=== PATIENT | female | born 1955 | race Caucasian/White ===

== ENCOUNTER 2020-11-01 08:15 | Day surgery (SDC) | payer MEDICARE, BC ==
[2020-11-01] VITALS (12 sets, daily range): BP systolic 107–162; BP diastolic 46–90
[~2020-11-01] VITALS: Ht 162.6 cm; Wt 82.5 kg
[2020-11-01] MEDS ORDERED: LORazepam 0.5 MG tablet PO PRN (08:45)
[2020-11-01] MEDS ORDERED: nitroGLYCERIN 0.4mg SUBLingual tab SL PRN (08:45)
[2020-11-01] MEDS ORDERED: normal saline 1,000 ML IV SCH (08:45)
[2020-11-01] MEDS ORDERED: diphenhydrAMINE 25mg capsule PO PRN (08:45)
[2020-11-01] MEDS ORDERED: CALC-103 (08:50)
[2020-11-01] MEDS ORDERED: ATOR20TA PO (08:50)
[2020-11-01] MEDS ORDERED: TRAZ-256 PO (08:50)
[2020-11-01] MEDS ORDERED: IBAN150T21 PO (08:50)
[2020-11-01] MEDS ORDERED: OMEP40CA13 PO (08:50)
[2020-11-01] MEDS ORDERED: FLUO-167 PO (08:50)
[2020-11-01] MEDS ORDERED: RIZA10TA27 PO (08:50)
[2020-11-01] MEDS ORDERED: OXYB5TAB16 PO (08:50)
[2020-11-01] MEDS ORDERED: FLUT100D2 INH (08:50)
[2020-11-01] MEDS ORDERED: ASPI-1265 PO (08:50)
[2020-11-01] MEDS ORDERED: MULT-1085 PO (08:50)
[2020-11-01] MEDS ORDERED: MAGN250T11 PO (08:50)
[2020-11-01 09:24] LABS: BASOPHILS % (AUTO) 0.6 % (0-1); EOSINOPHILS # (AUTO) 0.2 X10'3 (0-0.9); EOSINOPHILS % (AUTO) 4.4 % (0-6); HEMATOCRIT 43.4 % (35.0-45.0); HEMOGLOBIN 14.5 g/dl (12.0-16.0); LYMPHOCYTES # (AUTO) 1.8 X10'3 (1.1-4.8); LYMPHOCYTES % (AUTO) 36.7 % (21-51); MEAN CORPUSCULAR HEMOGLOBIN 32.5 PG (27.0-31.0); MEAN CORPUSCULAR HGB CONC 33.3 g/dL (33.0-36.5); MEAN CORPUSCULAR VOLUME 97.5 FL (78-98); MEAN PLATELET VOLUME 8.9 FL (7.4-10.4); MONOCYTES # (AUTO) 0.5 X10'3 (0-0.9); MONOCYTES % (AUTO) 10.4 % (2-12); NEUTROPHILS # (AUTO) 2.3 X10'3 (1.8-7.7); NEUTROPHILS % (AUTO) 47.9 % (42-75); PLATELET COUNT 176 X10'3 (140-440); RED BLOOD COUNT 4.46 X10'6 (4.20-5.60); RED CELL DISTRIBUTION WIDTH 12.9 % (11.5-14.5); WHITE BLOOD COUNT 4.9 X10'3 (4.5-11.0)
[2020-11-01 09:33] LABS: ALBUMIN 3.6 G/DL (3.4-5.0); ANION GAP 6 (8-16); BLOOD UREA NITROGEN 18 MG/DL (7-18); BUN/CREATININE RATIO 24.3 (6.6-38.0); CALCIUM 9.2 MG/DL (8.5-10.1); CHLORIDE 107 MMOL/L (99-107); CREATININE 0.74 MG/DL (0.40-0.90); GLUCOSE 106 MG/DL (70-104); POTASSIUM 4.1 MMOL/L (3.5-5.1); SODIUM 140 MMOL/L (135-145); TOTAL CARBON DIOXIDE 27.1 MMOL/L (24-32); eGFR 78 ML/MIN
[2020-11-01 09:35] LABS: PARTIAL THROMBOPLASTIN TIME 28 SECONDS (22-32)
[2020-11-01] MEDS ORDERED: LIDOcaine 1% (10mg/ml)w/preservative injection 20ml MDV ONE (10:25)
[2020-11-01] MEDS ORDERED: iohexol 350MG/ML 100ml bottle IV ONE (10:25)
[2020-11-01] MEDS ORDERED: iohexol 350 MG/ML 50ML vial IV ONE (10:25)
[2020-11-01] MEDS ORDERED: fentaNYL/PF 50MCG/1 ML 2ML syringe ONE (10:25)
[2020-11-01] MEDS ORDERED: midazolam 2 mg/2 ml injection ONE ×2 (10:25→10:58)
[2020-11-01 11:23] LABS: ISTAT HGB ART 12.6 g/dl (12.0-16.0); ISTAT Hct ART 37 %PCV (35-48); ISTAT O2 SATURATION ARTERIAL 75 % (95-98); ISTAT SOURCE ART
== END 2020-11-01 18:00 | disposition home or self-care (01) ==
LOC: SSTAY O 08:15
PROVIDERS: ATTEND Internal Medicine Cardiovascular Disease
DX: R94.39 Abnormal result of other cardiovascular function study (principal); I25.10 Atherosclerotic heart disease of native coronary artery without angina pectoris; E78.5 Hyperlipidemia, unspecified; J44.9 Chronic obstructive pulmonary disease, unspecified; I50.9 Heart failure, unspecified; Z87.891 Personal history of nicotine dependence
CPT/HCPCS: 36415; 71046; 80048; 82803; 85014; 85025; 85610; 85730; 93005; 93460; 99152; 99153; C1760; C1769; J1644; J2001; J2250; J3010; J7030; Q0163; Q9967; A4620; A6258; C1751

== ENCOUNTER 2020-11-22 08:48 | Outpatient (CLI) | payer MEDICARE, BC ==
[~2020-11-22 08:48] MED LIST: ASPI-1265 PO; ATOR20TA PO; CALC-103; FLUO-167 PO; FLUT100D2 INH; IBAN150T21 PO; MAGN250T11 PO; MULT-1085 PO; OMEP40CA13 PO; OXYB5TAB16 PO; RIZA10TA27 PO; TRAZ-256 PO
[2020-11-22 09:11] LABS: ABG BASE EXCESS -0.4 mmol/L (-2.0-2.0); ABG HCO3 23.4 mmol/L (22.0-26.0); ABG OXYGEN SATURATION 96.9 % (94-97); ABG PCO2 (T) 36.1 mmHg (32.0-45.0); ABG PO2 (T) 90.9 mmHg (75.0-100.0); ALLEN'S TEST POSITIVE; FMetHb 0.1 % (0.0-1.5); FO2Hb 95.8 % (94-97); TOTAL HEMOGLOBIN 15.5 G/dl (12.0-16.0)
== END 2020-11-22 23:59 | disposition home or self-care (01) ==
LOC: RT 08:48 → EDUNIT# 09:00 → RT 23:59
PROVIDERS: ATTEND Internal Medicine Cardiovascular Disease
DX: J45.998 Other asthma (principal); J44.9 Chronic obstructive pulmonary disease, unspecified
CPT/HCPCS: 36600; 82803; 85018; 94010; 94727; 94729

== ENCOUNTER 2022-01-08 08:52 | Day surgery (SDC) | payer MEDICARE, BC ==
[2022-01-01 12:53] LABS: BASOPHILS % (AUTO) 0.7 % (0-1); EOSINOPHILS # (AUTO) 0.2 X10'3 (0-0.9); EOSINOPHILS % (AUTO) 2.6 % (0-6); LYMPHOCYTES # (AUTO) 2.1 X10'3 (1.1-4.8); LYMPHOCYTES % (AUTO) 33.6 % (21-51); MEAN CORPUSCULAR HEMOGLOBIN 32.3 PG (27.0-31.0); MEAN CORPUSCULAR HGB CONC 33.9 g/dL (33.0-36.5); MEAN CORPUSCULAR VOLUME 95.3 FL (78-98); MEAN PLATELET VOLUME 9.7 FL (7.4-10.4); MONOCYTES # (AUTO) 0.5 X10'3 (0-0.9); MONOCYTES % (AUTO) 8.2 % (2-12); NEUTROPHILS # (AUTO) 3.4 X10'3 (1.8-7.7); NEUTROPHILS % (AUTO) 54.9 % (42-75); PRE OP HEMATOCRIT 44.4 % (35.0-45.0); PRE OP HEMOGLOBIN 15.1 g/dL (12.0-16.0); PRE OP PLATELET COUNT 186 X10'3 (140-440); RED BLOOD COUNT 4.66 X10'6 (4.20-5.60); RED CELL DISTRIBUTION WIDTH 13.2 % (11.5-14.5)
[2022-01-01 13:04] LABS: PRE OP INR 1.1 INR; PRE OP PROTIME 10.9 SECONDS (9.0-12.0)
[2022-01-01 13:08] LABS: ALBUMIN 3.7 G/DL (3.4-5.0); ALKALINE PHOSPHATASE 84 IU/L (46-116); BLOOD UREA NITROGEN 19 MG/DL (7-18); BUN/CREATININE RATIO 26.8 (6.6-38.0); CALCIUM 9.5 MG/DL (8.5-10.1); CHLORIDE 104 MMOL/L (99-107); CREATININE 0.71 MG/DL (0.40-0.90); PRE OP ALT 36 U/L (30-65); PRE OP ANION GAP 10 (8-16); PRE OP AST 24 U/L (10-37); PRE OP BILIRUB, TOTAL 0.7 MG/DL (0.0-1.0); PRE OP GLUCOSE 99 MG/DL (70-104); PRE OP POTASSIUM 3.8 MMOL/L (3.4-5.1); PRE OP SODIUM 140 MMOL/L (135-145); TOTAL CARBON DIOXIDE 25.9 MMOL/L (24-32); TOTAL PROTEIN 7.5 G/DL (6.4-8.2); eGFR 82 ML/MIN
[2022-01-08] VITALS (12 sets, daily range): BP systolic 115–176; BP diastolic 71–96
[~2022-01-08] VITALS: Ht 162.6 cm; Wt 80.9 kg
[~2022-01-08 08:52] MED LIST changes: +ASCO100T12 PO; +CHOL400T57 PO; +CYAN250010 PO; +CYCL-392 PO; +DOCU-148 PO; +FOLI0.4T14 PO; -IBAN150T21 PO; +LIDOcaine 1% W/epiNEPHrine 1:100,000 20ml vial ONE; +MAGN400C PO; +MIRA50TA PO; -OMEP40CA13 PO; +OMEP40CA21 PO; +PYRI100T10 PO; +RIZA10TA98 PO; +ROMO105S SQ; +UBID50TA3 PO; +VITA400T10 PO; +albuterol 2.5 MG/3 ML nebule NEB ONE; +cocaine 4% topical solution 4ml bottle ONE; +diazepam 5mg tablet PO ONE; +famotidine 20mg tablet PO ONE; +mupirocin 2% ointment 22GM ONE; +oxymetazoline 15 ML nasal spray NS ONE; +ringers solution, lacted 1,000 ML IV SCH
[2022-01-08] MEDS: oxymetazoline 15 ML nasal spray NS SCH ×2 (10:21→14:49)
[2022-01-08] MEDS ORDERED: sevoflurane 250ml liquid IH ONE (12:43)
[2022-01-08] MEDS ORDERED: midazolam 1 mg/ML 2ml injection ONE (12:46)
[2022-01-08] MEDS ORDERED: fentaNYL /PF 50mcg/ml 5ml ampule ONE (12:46)
[2022-01-08] MEDS ORDERED: dexamethasone sod phosphate 4mg/ml inj. ONE (13:25)
[2022-01-08] MEDS ORDERED: LIDOcaine 2% (20mg/ml) 5ml vial ONE (13:25)
[2022-01-08] MEDS ORDERED: glycopyrrolate 0.2mg/ml inj ONE (13:25)
[2022-01-08] MEDS ORDERED: ondansetron/PF 4mg/2ml inj ONE (13:25)
[2022-01-08] MEDS ORDERED: ePHEDrine 50MG/ML INJ. ONE (13:25)
[2022-01-08] MEDS ORDERED: propofol inj 20 ML IV ONE (13:25)
--- NOTE | 2022-01-08 13:47 | NUR ---
Received from OR via [facility] , accompanied by Anesthesiologist DR MCKINLEY and report given by Anesthesiolgist. PT PRESENTS WITH PIV 20G RIGHT FOREARM, NASAL PACKING CDI, VSS. Addendum: 01/08/22 at 1404 by Marina Aiken RN, RN Amended: Links added.
[2022-01-08] MEDS ORDERED: morphine 4 MG/ML inj SYRINge IV PRN (13:55)
[2022-01-08] MEDS ORDERED: labetalol 5mg/ml 20ml inj. IV PRN (13:55)
[2022-01-08] MEDS ORDERED: morphine 2 MG/ML inj. syringe IV PRN (13:55)
[2022-01-08] MEDS ORDERED: ondansetron/PF 4mg/2ml inj IV PRN (13:55)
[2022-01-08] MEDS ORDERED: meperidine/PF 25mg/ml syringe IV PRN ×2 (13:55)
[2022-01-08] MEDS ORDERED: ringers solution, lacted 1,000 ML IV SCH (13:55)
[2022-01-08] MEDS ORDERED: salt irrigation nasal spray 45 ML SPRAY NS PRN (14:05)
--- NOTE | 2022-01-08 14:10 | NUR ---
HYDRALAZINE OUT OF STOCK, PHARMACY CALLED AND NOTIFIED. WILL GIVE PT MEDICATION SOON IT GETS TO PACU. Addendum: 01/08/22 at 1440 by Marina Aiken RN, RN Amended: Links added.
[2022-01-08] MEDS ORDERED: mupirocin 2% ointment 22GM TP STA (14:19)
[2022-01-08] MEDS: hydrALAZINE 20mg/ml inj. IV PRN ×2 (14:36→14:54)
--- NOTE | 2022-01-08 15:27 | NUR ---
I HAVE REVIEWED D/C INSTRUCTIONS WITH PATIENT AND THEY HAVE VERBALIZED UNDERSTANDING OF INSTRUCTIONS. PT WAS GIVEN EXTRA 4X4 GAUZE, BACITRACIN, AFRIN AND OCEAN SPRAY WITH SPECIFIC INSTRUCTINS PER DR SHIRLEY. PATIENT D/C HOME WITH ALL BELONGINGS AND FAMILY GAVE TRANSPORT. PT LEFT GLASSES IN ROOM, GLASSES WILL BE MAILED TO PT'S HOME. OK PER PT. Addendum: 01/08/22 at 1640 by Marina Aiken RN, RN Amended: Links added.
== END 2022-01-08 15:27 | disposition home or self-care (01) ==
LOC: PAS 08:52
PROVIDERS: ATTEND Otolaryngology
DX: J34.2 Deviated nasal septum (principal); J34.3 Hypertrophy of nasal turbinates; F17.210 Nicotine dependence, cigarettes, uncomplicated; F32.A Depression, unspecified; G47.33 Obstructive sleep apnea (adult) (pediatric); M81.0 Age-related osteoporosis without current pathological fracture; K21.9 Gastro-esophageal reflux disease without esophagitis; Z20.822 Contact with and (suspected) exposure to COVID-19; Z90.710 Acquired absence of both cervix and uterus; Z98.890 Other specified postprocedural states; Z72.89 Other problems related to lifestyle; Z86.19 Personal history of other infectious and parasitic diseases; Z88.2 Allergy status to sulfonamides; Z79.899 Other long term (current) drug therapy; Z79.01 Long term (current) use of anticoagulants
CPT/HCPCS: 30140; 30520; 36415; 80053; 82948; 85025; 85576; 85610; 85730; 87635; 93005; A6402; C9250; C9803; J0360; J1100; J2175; J2250; J2405; J2704; J3010; J3490; J7030; J7050; J7120; U0003; U0005; Z7506; Z7508; Z7512; 88300; A4618; A7000

== ENCOUNTER 2024-06-04 12:35 | Emergency (ER) | payer MEDICARE, BC ==
[~2024-06-04] VITALS: Ht 162.6 cm; Wt 76.0 kg
[~2024-06-04 12:35] MED LIST changes: -LIDOcaine 1% W/epiNEPHrine 1:100,000 20ml vial ONE; -OXYB5TAB16 PO; +RIZA-5 PO; -RIZA10TA27 PO; -albuterol 2.5 MG/3 ML nebule NEB ONE; -cocaine 4% topical solution 4ml bottle ONE; -diazepam 5mg tablet PO ONE; -famotidine 20mg tablet PO ONE; -mupirocin 2% ointment 22GM ONE; -oxymetazoline 15 ML nasal spray NS ONE; -ringers solution, lacted 1,000 ML IV SCH
[2024-06-04 13:50] LABS: BASOPHILS % (AUTO) 0.2 % (0-1); EOSINOPHILS % (AUTO) 0.7 % (0-6); HEMOGLOBIN 15.8 g/dl (12.0-16.0); LYMPHOCYTES # (AUTO) 1.4 X10'3 (1.1-4.8); LYMPHOCYTES % (AUTO) 19.5 % (21-51); MEAN CORPUSCULAR HEMOGLOBIN 32.8 PG (27.0-31.0); MEAN CORPUSCULAR HGB CONC 33.7 g/dL (33.0-36.5); MEAN CORPUSCULAR VOLUME 97.2 FL (78-98); MEAN PLATELET VOLUME 8.9 FL (7.4-10.4); MONOCYTES # (AUTO) 0.5 X10'3 (0-0.9); MONOCYTES % (AUTO) 6.6 % (2-12); NEUTROPHILS # (AUTO) 5.3 X10'3 (1.8-7.7); PLATELET COUNT 195 X10'3 (140-440); RED BLOOD COUNT 4.84 X10'6 (4.20-5.60); RED CELL DISTRIBUTION WIDTH 13.5 % (11.5-14.5); WHITE BLOOD COUNT 7.2 X10'3 (4.5-11.0)
[2024-06-04 13:56] LABS: ALBUMIN 3.7 G/DL (3.4-5.0); ANION GAP 10 (8-16); BLOOD UREA NITROGEN 14 MG/DL (7-18); CALCIUM 9.4 MG/DL (8.5-10.1); CHLORIDE 106 MMOL/L (99-107); GLUCOSE 116 MG/DL (70-104); POTASSIUM 3.8 MMOL/L (3.5-5.1); SODIUM 142 MMOL/L (135-145); TOTAL CARBON DIOXIDE 25.9 MMOL/L (24-32); eCRCL 65 ML/MIN; eGFR 83 ML/MIN
[2024-06-04] MEDS ORDERED: iohexol 350MG/ML 100ml bottle IV ONE (14:00)
[2024-06-04 14:08] LABS: APTT 29 SECONDS (22-32); INR 1.1 INR; PROTHROMBIN TIME 11.3 SECONDS (9.0-12.0)
[2024-06-04] MEDS: meclizine 12.5mg tablet PO ONE (14:33)
[2024-06-04 15:22] LABS: BILIRUBIN,URINE MODERATE (Neg); CLARITY,URINE CLOUDY (Clear); COLOR,URINE YELLOW (Yellow); GLUCOSE, URINE NEGATIVE (Neg); KETONES,URINE >=80 mg/dl (Neg); LEUKOCYTE ESTERASE ,URINE NEGATIVE (Neg); NITRITES, URINE NEGATIVE (Neg); OCCULT BLOOD,URINE NEGATIVE (Neg); PROTEIN,URINE 30 mg/dl (Neg)
[2024-06-04 15:25] LABS: UA COLLECTION TYPE VOIDED
[2024-06-04 15:30] LABS: RBC,URINE NONE SEEN /HPF (0-2)
[2024-06-04 15:31] LABS: BACTERIA,URINE FEW /HPF (Neg); MUCUS STRANDS MANY /LPF (Neg); SQUAMOUS EPITHELIAL CELL,UR MODERATE /LPF (FEW); TRANSITIONAL EPI CELLS,URINE FEW /HPF; WBC,URINE 0-4 /HPF (0-4)
[2024-06-04] MEDS ORDERED: MECL-302 PO (16:17)
[2024-06-04] MEDS ORDERED: ONDA-245 PO (16:20)
[2024-06-04 16:30] VITALS: BP 176/70; PULSE 57; RESP 16; TEMP 98.3; O2SAT 95
== END 2024-06-04 16:33 | disposition home or self-care (01) ==
LOC: ER 12:35
DX: R42 Dizziness and giddiness (principal); I10 Essential (primary) hypertension; Z88.2 Allergy status to sulfonamides; Z79.899 Other long term (current) drug therapy; Z79.82 Long term (current) use of aspirin; Z79.51 Long term (current) use of inhaled steroids
CPT/HCPCS: 36415; 70450; 70496; 70498; 71045; 80048; 81001; 82948; 85025; 85610; 85730; 93005; 99285; J8597; Q9967